=== PATIENT | male | born 1970 | race Caucasian/White ===

== ENCOUNTER 2020-05-13 16:35 | Emergency (ER) | payer OTHER ==
[2020-05-13] MEDS ORDERED: KETOROLAC 30 MG/ML INJ ONE (17:10)
[2020-05-13] MEDS ORDERED: HYDROCODONE/APAP 10/325 TAB ONE (17:10)
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
--- NOTE | 2020-05-13 17:41 | EDPHYS ---
Physician Documentation [facility] Name: Juancho Longoria Age: 50 yrs Sex: Male : 1970 Arrival Date: 05/13/2020 Time: 16:36 Bed 4 Private MD: Stefanie Coombs H ED Physician Raffi Landa HPI: 05/13 17:21 This 50 yrs old Male presents to ER via Ambulatory with complaints of Fall willa Injury, Arm Injury, Wrist Injury. 17:21 Details of fall: The patient fell from an upright position, while walking. Onset: The willa symptoms/episode began/occurred just prior to arrival. Associated injuries: The patient sustained dorsal aspect of left forearm, left wrist and palmar aspect of left forearm, decreased range of motion, hematoma, obvious fracture, painful injury. Severity of symptoms: At their worst the symptoms were moderate, in the emergency department the symptoms are unchanged. The patient has not experienced similar symptoms in the past. Historical: - Allergies: 16:56 No Known Allergies; ph - Home Meds: 16:56 lisinopril-hydrochlorothiazide 20-12.5 mg oral tab 1 tab once daily [Active]; ph - PMHx: 16:56 Hypertension; ph - PSHx: 16:56 Hernia repair; ph - Immunization history:: Adult Immunizations up to date. - Family history:: not pertinent. - Social history:: Smoking status: Patient denies any tobacco usage or history of. ROS: 17:21 Constitutional: Negative for fever, chills, and weight loss, Eyes: Negative for injury, willa pain, redness, and discharge, ENT: Negative for injury, pain, and discharge, Neck: Negative for injury, pain, and swelling, Cardiovascular: Negative for chest pain, palpitations, and edema, Respiratory: Negative for shortness of breath, cough, wheezing, and pleuritic chest pain, Abdomen/GI: Negative for abdominal pain, nausea, vomiting, diarrhea, and constipation, Back: Negative for injury and pain, : Negative for injury, bleeding, discharge, and swelling, Skin: Negative for injury, rash, and discoloration, Neuro: Negative for headache, weakness, numbness, tingling, and seizure, Psych: Negative for depression, anxiety, suicide ideation, homicidal ideation, and hallucinations, Allergy/Immunology: Negative for hives, rash, and allergies, Endocrine: Negative for neck swelling, polydipsia, polyuria, polyphagia, and marked weight changes, Hematologic/Lymphatic: Negative for swollen nodes, abnormal bleeding, and unusual bruising. 17:21 MS/extremity: Positive for decreased range of motion, pain, swelling, tenderness, of the dorsal aspect of left forearm, left wrist and palmar aspect of left forearm. Exam: 17:21 Constitutional: This is a well developed, well nourished patient who is awake, alert, willa and in no acute distress. Head/Face: Normocephalic, atraumatic. Eyes: Pupils equal round and reactive to light, extra-ocular motions intact. Lids and lashes normal. Conjunctiva and sclera are non-icteric and not injected. Cornea within normal limits. Periorbital areas with no swelling, redness, or edema. ENT: Nares patent. No nasal discharge, no septal abnormalities noted. Tympanic membranes are normal and external auditory canals are clear. Oropharynx with no redness, swelling, or masses, exudates, or evidence of obstruction, uvula midline. Mucous membranes moist. Neck: Trachea midline, no thyromegaly or masses palpated, and no cervical lymphadenopathy. Supple, full range of motion without nuchal rigidity, or vertebral point tenderness. No Meningismus. Chest/axilla: Normal chest wall appearance and motion. Nontender with no deformity. No lesions are appreciated. Cardiovascular: Regular rate and rhythm with a normal S1 and S2. No gallops, murmurs, or rubs. Normal PMI, no JVD. No pulse deficits. Respiratory: Lungs have equal breath sounds bilaterally, clear to auscultation and percussion. No rales, rhonchi or wheezes noted. No increased work of breathing, no retractions or nasal flaring. Abdomen/GI: Soft, non-tender, with normal bowel sounds. No distension or tympany. No guarding or rebound. No evidence of tenderness throughout. Back: No spinal tenderness. No costovertebral tenderness. Full range of motion. Skin: Warm, dry with normal turgor. Normal color with no rashes, no lesions, and no evidence of cellulitis. Neuro: Awake and alert, GCS 15, oriented to person, place, time, and situation. Cranial nerves II-XII grossly intact. Motor strength 5/5 in all extremities. Sensory grossly intact. Cerebellar exam normal. Normal gait. Psych: Awake, alert, with orientation to person, place and time. Behavior, mood, and affect are within normal limits. 17:21 Musculoskeletal/extremity: Extremities: noted in the dorsal aspect of left forearm and left wrist: decreased ROM, pain, swelling, tenderness, ROM: limited active range of motion, limited passive range of motion, Pulses: noted to be 4+ in the bilateral radial, brachial, femoral, popliteal, posterior tibial and and dorsalis pedis arteries., Sensation intact. Compartment Syndrome exam of affected extremity: is normal. Joints: All joints are normal except Vital Signs: 16:56 BP 173 / 114; Pulse 95; Resp 18; Temp 98.9; Pulse Ox 98% on R/A; Weight 117.93 kg; ph Height 6 ft. 1 in. (185.42 cm); Pain 5/10; 17:30 BP 163 / 106; Pulse 86; Resp 16; Temp 98.9; Pulse Ox 95% ; sv 18:00 Pain 3/10; sv 16:56 Body Mass Index 34.30 (117.93 kg, 185.42 cm) ph Meredith Coma Score: 16:55 Eye Response: spontaneous(4). Verbal Response: oriented(5). Motor Response: obeys sv commands(6). Total: 15. 17:30 Eye Response: spontaneous(4). Verbal Response: oriented(5). Motor Response: obeys sv commands(6). Total: 15. Trauma Score (Adult): 16:55 Eye Response: spontaneous(1); Verbal Response: oriented(1); Motor Response: obeys sv commands(2); Systolic BP: > 89 mm Hg(4); Respiratory Rate: 10 to 29 per min(4); Meredith Score: 15; Trauma Score: 12 17:30 Eye Response: spontaneous(1); Verbal Response: oriented(1); Motor Response: obeys sv commands(2); Systolic BP: > 89 mm Hg(4); Respiratory Rate: 10 to 29 per min(4); [place] Score: 15; Trauma Score: 12 MDM: 16:44 Patient medically screened. [facility] 17:24 Differential diagnosis: contusion, fracture, sprain. Data reviewed: vital signs, nurses [facility] notes, radiologic studies, plain films. Data interpreted: Pulse oximetry: on room air is 98 %. Test interpretation: by ED physician or midlevel provider: plain radiologic studies. Counseling: I had a detailed discussion with the patient and/or guardian regarding: the historical points, exam findings, and any diagnostic results supporting the discharge/admit diagnosis, radiology results, the need for outpatient follow up, for definitive care, a orthopedic surgeon. 05/13 16:55 Order name: Forearm Left XRAY [facility] 05/13 16:55 Order name: Ice pack; Complete Time: 16:57 [facility] 05/13 17:35 Order name: Sling; Complete Time: 18:01 [facility] 05/13 17:35 Order name: Sugar Tong Forearm Splint: well padded; Complete Time: 18:01 [facility] Administered Medications: 17:12 Drug: TORadol 60 mg Route: IM; Site: right vastus lateralis; sv 18:00 Follow up: Response: No adverse reaction sv 17:12 Drug: [place] 10 mg-325 mg 1 tabs {Note: rass2.} Route: PO; sv 18:00 Follow up: Pain 3/10 Adult; Response: No adverse reaction; Pain is decreased; RASS: sv Light sedation (-2) Disposition: 05/13/20 17:40 Discharged to Home. Impression: Fall due to bumping against object, De La Torre's fracture of left radius. - Condition is Stable. - Discharge Instructions: Wrist Fracture Treated With Immobilization, Wrist Fracture Treated With Immobilization, [id number]. - Prescriptions for Ibuprofen 600 mg Oral Tablet - take 1 tablet by ORAL route every 6 hours As needed take with food; 20 tablet. Tylenol- Codeine #3 300-30 mg Oral Tablet - take 2 tablet by ORAL route every 6 hours As needed; 30 tablet. - Medication Reconciliation Form, Thank You Letter, Antibiotic Education, Prescription Opioid Use form. - Follow up: José Miguel Limon MD; When: 2 - 3 days; Reason: Recheck today's complaints, Re-evaluation by your physician. - Problem is new. - Symptoms have improved. Signatures: Dispatcher [employer] EDMariana Santoyo RN RN sv Anderson, Corey, MD MD cha Smirch, Shelby, RN RN ss Hall, Patricia, RN RN ph Corrections: (The following items were deleted from the chart) 18:02 17:40 05/13/2020 17:40 Discharged to Home. Impression: Fall due to bumping against ss object; De La Torre's fracture of left radius. Condition is Stable. Forms are Medication Reconciliation Form, Thank You Letter, Antibiotic Education, Prescription Opioid Use. Follow up: José Miguel Limon; When: 2 - 3 days; Reason: Recheck today's complaints, Re-evaluation by your physician. Problem is new. Symptoms have improved. willa
--- NOTE | 2020-05-13 17:45 | RAD REPORT ---
EXAM DESCRIPTION: RAD - Forearm Left - 05/13/2020 5:35 pm CLINICAL HISTORY: PAIN Fall, pain COMPARISON: No comparisons FINDINGS: Mildly impacted fracture of the distal radius is present with significant surrounding soft tissue swelling. No dislocation.
[2020-05-13 18:06] VITALS: TEMP 98.9
[2020-05-13 18:08] VITALS: BP 163/106; O2SAT 95
== END 2020-05-13 18:02 | disposition home or self-care (01) ==
LOC: ER 16:35
PROC: 2W3DX1Z Immobilization of Left Lower Arm using Splint (ICD-10-PCS; principal; 2020-05-13)
DX: S52.562A Barton's fracture of left radius, initial encounter for closed fracture (principal); W18.00XA Striking against unspecified object with subsequent fall, initial encounter; Y93.01 Activity, walking, marching and hiking; Y92.9 Unspecified place or not applicable; I10 Essential (primary) hypertension
CPT/HCPCS: 96372; 99284

== ENCOUNTER 2023-08-30 18:23 | Emergency (ER) | payer OTHER ==
[2023-08-30] MEDS ORDERED: HYDROCODONE/APAP 5/325 MG TAB ONE (18:57)
--- NOTE | 2023-08-30 19:35 | RAD REPORT ---
EXAM DESCRIPTION: RAD - Forearm Right - 08/30/2023 7:26 pm CLINICAL HISTORY: PAIN COMPARISON: <Comparisons> FINDINGS: Mildly comminuted intra-articular fracture involves the distal radius. Ulnar styloid avuls ion fracture. No dislocation evident.
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
[2023-08-30] MEDS ORDERED: KETOROLAC 30 MG/ML INJ ONE (20:50)
[2023-08-30 22:19] VITALS: TEMP 98.6
[2023-08-30 22:21] VITALS: O2SAT 97
[2023-08-30 22:25] VITALS: BP 208/115
== END 2023-08-30 21:46 | disposition home or self-care (01) ==
LOC: ER 18:23
PROC: 2W3CX1Z Immobilization of Right Lower Arm using Splint (ICD-10-PCS; principal; 2023-08-30)
DX: S52.91XA Unspecified fracture of right forearm, initial encounter for closed fracture (principal)
CPT/HCPCS: 96372; 99284

== ENCOUNTER 2023-09-02 10:22 | Day surgery (SDC) | payer OTHER ==
[2023-09-02] MEDS ORDERED: CEFAZOLIN SODIUM 1 GM/VIAL ONE (10:45)
[2023-09-02] MEDS ORDERED: Ringers Lactate 1,000 ML IV ONE (10:45)
[2023-09-02 11:25] LABS: Absolute Lymphocytes (CBC) 1.9 K/uL (0.7-4.9); Hematocrit 45.9 % (39.6-49.0); Lymphocytes % 28.5 % (15.3-44.8); MPV 8.1 fL (7.6-11.3); Platelets 309 thou/uL (152-406); RBC Red Blood Cell Count 4.88 M/uL (4.33-5.43)
[2023-09-02 11:54] LABS: Potassium 4.2 mEq/L (3.5-5.1)
--- NOTE | 2023-09-02 13:26 | EKG ---
Test Date: 2023-09-02 Test Time: 11:45:49 Patient Access Director: DANYA MEASUREMENT RESULTS: Intervals: Rate: 65 CA: 170 QRSD: 98 QT: 410 QTc: 426 [place]: P: 36 CA: 170 QRS: 22 T: 34 INTERPRETIVE STATEMENTS: Normal sinus rhythm Normal ECG Compared to ECG 02/23/2020 14:40:12 No significant changes Electronically Signed On 09-02-23 13:26:06 [employer] by Gildardo Park
[2023-09-02] MEDS ORDERED: FENTANYL CITR 100 MCG/2 ML ONE ×2 (13:52→14:50)
[2023-09-02] MEDS ORDERED: LIDOCAINE 1% MPF 5 ML VIAL ONE (13:52)
[2023-09-02] MEDS ORDERED: MIDAZOLAM HCL 2 MG/2 ML INJ ONE (13:53)
[2023-09-02] MEDS ORDERED: propofoL 200 MG/20 ML VIAL IV ONE (14:50)
[2023-09-02] MEDS ORDERED: ROCURONIUM 50 MG/5 ML VIAL IV ONE (14:50)
[2023-09-02] MEDS ORDERED: SUCCINYLCHOLINE 20 MG/ML (10 ML) IV ONE (14:58)
[2023-09-02] MEDS ORDERED: HYDROMORPHONE HCL 1 MG/ML INJ ONE ×2 (15:44→17:34)
--- NOTE | 2023-09-02 17:30 | RAD REPORT ---
EXAM DESCRIPTION: RAD - Fluoroscopy <1 Hour - 09/02/2023 4:58 pm CLINICAL HISTORY: Device placement central venous catheter placement FINDINGS: Fuoroscopy time 1.7 minutes. Seventy-six fluoroscopic intraoperative spot images obtained Sideplate and screws affix a radial fracture Surgery performed by Dr. Limon
[2023-09-02] MEDS: MEPERIDINE HCL 25 MG/ML SYR ONE ×2 (17:34→17:39)
[2023-09-02] MEDS: LABETALOL 20 MG/4ML SYRINGE IV ONE ×3 (17:49→18:10)
[2023-09-02] MEDS: HYDROMORPHONE HCL 1 MG/ML INJ ONE ×2 (17:55→18:01)
[2023-09-02] MEDS: FENTANYL CITR 100 MCG/2 ML ONE ×4 (18:15→18:40)
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
[2023-09-02 18:43] VITALS: O2SAT 94
[2023-09-02] MEDS ORDERED: HYDROCODONE/APAP 10/325 TAB ONE (19:23)
[2023-09-02 20:20] VITALS: BP 170/107; TEMP 97.9
== END 2023-09-02 20:10 | disposition home or self-care (01) ==
LOC: OR 10:22
PROVIDERS: ATTEND Orthopaedic Surgery
PROC: 0PSH04Z Reposition Right Radius with Internal Fixation Device, Open Approach (ICD-10-PCS; principal; 2023-09-02 14:15)
PROC: 01N50ZZ Release Median Nerve, Open Approach (ICD-10-PCS; 2023-09-02 14:15)
DX: S52.571A Other intraarticular fracture of lower end of right radius, initial encounter for closed fracture (principal); G56.01 Carpal tunnel syndrome, right upper limb; I10 Essential (primary) hypertension; E66.9 Obesity, unspecified; Z68.35 Body mass index [BMI] 35.0-35.9, adult; Z79.899 Other long term (current) drug therapy
CPT/HCPCS: 93005; 85025; 80048; 36415; 76000; 25609; 64721; J2704; J2001; J2250; J3010 ×3; J2175; J1170 ×3; J7120; J0690; C1713 ×2